=== PATIENT | female | born 1960 | race Caucasian/White ===

== ENCOUNTER 2024-09-10 13:51 | Inpatient (IN) | payer MEDICARE, OTHER ==
[~2024-09-10] VITALS: Ht 177.8 cm; Wt 89.8 kg
[2024-09-10 14:01] VITALS: TEMP 98.7
[2024-09-10] MEDS ORDERED: ASPIRIN EC81 MG PO (14:07)
[2024-09-10] MEDS ORDERED: LOSARTAN POTASS25 MG PO (14:07)
[2024-09-10] MEDS: ONDANSETRON HCL INJ 2MG/ML 2ML 2 MG/ML VIAL IV STA (14:17)
[2024-09-10] MEDS: Morphine 4mg INJECTION 4 MG/ML INJ IV ONE (14:17)
[2024-09-10 14:18] LABS: BASOPHILS % 0.3 % (0.0-1.0); EOSINOPHILS # (AUTO) 0.1 (0.0-0.4); EOSINOPHILS % 0.7 % (0.0-6.0); HEMATOCRIT 35.1 % (34.2-44.1); HEMOGLOBIN 11.3 g/dL (12.0-16.0); LYMPHOCYTES # (AUTO) 1.3 (1.0-3.2); LYMPHOCYTES % 12.9 % (18.0-39.1); MEAN CORPUSCULAR HEMOGLOBIN 29.4 pg (28-32); MEAN CORPUSCULAR HGB CONC 32.2 g/dL (31-35); MEAN CORPUSCULAR VOLUME 91.4 fL (81-99); MONOCYTES # (AUTO) 1.7 (0.2-0.8); MONOCYTES % 16.6 % (4.4-11.3); NEUTROPHILS # (AUTO) 6.9 (2.1-6.9); NEUTROPHILS % 68.7 % (38.7-80.0); PLATELET COUNT 302 x10e3/uL (140-360); RED BLOOD COUNT 3.84 x10e6/uL (3.6-5.1); RED CELL DISTRIBUTION WIDTH 14.6 % (11.7-14.4); WHITE BLOOD COUNT 10.09 x10e3/uL (4.8-10.8)
[2024-09-10 14:34] LABS: INR 1.06; PROTHROMBIN TIME 14.4 seconds (11.9-14.5)
[2024-09-10 14:35] LABS: PARTIAL THROMBOPLASTIN TIME 29.2 seconds (23.8-35.5)
[2024-09-10 14:43] LABS: ALBUMIN/GLOBULIN RATIO 0.9 (0.8-2.0); ANION GAP 12.8 mmol/L (8-16); BILIRUBIN,TOTAL 1.3 mg/dL (0.2-1.2); CALCIUM 8.6 mg/dL (8.4-10.2); CREATININE, SERUM 0.7 mg/dL (0.57-1.11); POTASSIUM 3.8 mmol/L (3.5-5.1); TOTAL PROTEIN 6.5 g/dL (6.5-8.1)
[2024-09-10] MEDS: CEFTRIAXONE 2 GM in SODIUM CHLORIDE 0.9% 100 ML IV ONE (14:45)
[2024-09-10] MEDS: Vancomycin IV 1 GM in SODIUM CHLORIDE 0.9% 250ML 250 ML IV ONE (14:45)
[2024-09-10] MEDS: HYDROCODONE/APAP 5MG-325MG TAB PO ONE (15:11)
[2024-09-10] MEDS: FENTANYL CITRATE/PF 100MCG/2 ML INJ IV ONE (15:15)
[2024-09-10 16:00] VITALS: PULSE 86; RESP 18
[2024-09-10 16:32] VITALS: BP 131/63; PULSE 81; RESP 18; TEMP 98.6; O2SAT 100
[2024-09-10] MEDS ORDERED: POLYETHYLENE GLYCOL 3350 17 GM PACK PO PRN (17:00)
[2024-09-10] MEDS ORDERED: BISACODYL 10 MG SUPP PR PRN (17:00)
[2024-09-10] MEDS ORDERED: ACETAMINOPHEN 325 MG TAB PO PRN (17:00)
[2024-09-10] MEDS ORDERED: HYDRALAZINE HCL 20 MG/ML VIAL IV PRN (17:00)
[2024-09-10 17:06] VITALS: BP 131/63; PULSE 81; RESP 18; TEMP 98.6; O2SAT 100
[2024-09-10] MEDS: SODIUM CHLORIDE 0.9% 1000ML 1,000 ML IV SCH (17:38)
[2024-09-10 20:00] VITALS: BP 130/66; PULSE 83; RESP 20; TEMP 98.1; O2SAT 98
[2024-09-10 21:00] VITALS: BP 130/66; PULSE 83; RESP 20; TEMP 98.1; O2SAT 98
[2024-09-10] MEDS: ONDANSETRON HCL INJ 2MG/ML 2ML 2 MG/ML VIAL IV PRN (21:06)
[2024-09-10] MEDS: Morphine 4mg INJECTION 4 MG/ML INJ IV PRN (21:07)
[2024-09-10] MEDS: KETOROLAC TROMETHAMINE 30 MG/ML VIAL IV STA (22:27)
[2024-09-11] VITALS (10 sets, daily range): BP systolic 100–178; BP diastolic 61–98; PULSE 77–85; RESP 16–20; TEMP 97.3–97.9; O2SAT 96–100
[2024-09-11] MEDS: Vancomycin IV 1 GM in SODIUM CHLORIDE 0.9% 250ML 250 ML IV SCH (02:26)
[2024-09-11 05:48] LABS: BASOPHILS # (AUTO) 0.1 (0.0-0.1); BASOPHILS % 0.9 % (0.0-1.0); EOSINOPHILS # (AUTO) 0.2 (0.0-0.4); EOSINOPHILS % 2.7 % (0.0-6.0); HEMATOCRIT 33.7 % (34.2-44.1); HEMOGLOBIN 10.8 g/dL (12.0-16.0); LYMPHOCYTES # (AUTO) 1.8 (1.0-3.2); LYMPHOCYTES % 22.7 % (18.0-39.1); MEAN CORPUSCULAR HEMOGLOBIN 29.7 pg (28-32); MEAN CORPUSCULAR VOLUME 92.6 fL (81-99); MONOCYTES # (AUTO) 1.3 (0.2-0.8); NEUTROPHILS # (AUTO) 4.5 (2.1-6.9); NEUTROPHILS % 57.1 % (38.7-80.0); PLATELET COUNT 304 x10e3/uL (140-360); RED BLOOD COUNT 3.64 x10e6/uL (3.6-5.1); RED CELL DISTRIBUTION WIDTH 14.6 % (11.7-14.4); WHITE BLOOD COUNT 7.87 x10e3/uL (4.8-10.8)
[2024-09-11 06:21] LABS: ALBUMIN 2.7 g/dL (3.5-5.0); ALBUMIN/GLOBULIN RATIO 0.8 (0.8-2.0); ANION GAP 14.2 mmol/L (8-16); BILIRUBIN,TOTAL 0.9 mg/dL (0.2-1.2); CALCIUM 8.2 mg/dL (8.4-10.2); CREATININE, SERUM 0.68 mg/dL (0.57-1.11); POTASSIUM 4.2 mmol/L (3.5-5.1); TOTAL PROTEIN 5.9 g/dL (6.5-8.1)
[2024-09-11 07:07] LABS: MAGNESIUM 1.9 MG/DL (1.3-2.1)
[2024-09-11 07:28] LABS: FERRITIN 197.92 ng/mL (4.63-204.00)
[2024-09-11] MEDS: DOCUSATE SODIUM 100 MG CAP PO SCH (11:04)
[2024-09-11] MEDS: SENNOSIDES 8.6 MG TAB PO SCH (11:04)
[2024-09-11] MEDS ORDERED: PROPOFOL IV EMULSION 10 MG/ML 20 ML VIAL ONE (11:20)
[2024-09-11] MEDS ORDERED: FENTANYL CITRATE/PF 100MCG/2 ML INJ ONE (11:20)
[2024-09-11] MEDS ORDERED: LIDOCAINE HCL 2% LOCAL INJ 5 ML SDV VIAL INJ ONE (11:23)
[2024-09-11] MEDS ORDERED: KETOROLAC TROMETHAMINE 30 MG/ML VIAL IV PRN (11:45)
[2024-09-11] MEDS ORDERED: MIDAZOLAM HCL 2 MG/2 ML VIAL ONE (12:23)
[2024-09-11] MEDS ORDERED: HYDROMORPHONE 2MG/ML ONE (13:20)
[2024-09-11] MEDS ORDERED: HYDROCODONE/APAP 5MG-325MG TAB PO PRN (13:30)
[2024-09-11] MEDS ORDERED: DEXAMETHASONE SOD PHOS INJ 4 MG/ML SDV ONE (13:37)
[2024-09-11] MEDS ORDERED: ONDANSETRON HCL INJ 2MG/ML 2ML 2 MG/ML VIAL ONE (13:37)
[2024-09-11] MEDS ORDERED: SEVOFLURANE INHAL SOLN 250 ML PEN BTL ONE (13:45)
[2024-09-11] MEDS: FENTANYL CITRATE/PF 100MCG/2 ML INJ ONE (15:00)
[2024-09-11] MEDS: CELECOXIB 200 MG CAP PO SCH (17:27)
[2024-09-11 20:31] LABS: BILIRUBIN,URINE NEGATIVE (NEGATIVE); CLARITY,URINE SL CLOUDY (CLEAR); COLOR,URINE YELLOW (YELLOW); GLUCOSE, URINE 1+ (NEGATIVE); KETONES,URINE NEGATIVE (NEGATIVE); LEUKOCYTE ESTERASE ,URINE TRACE (NEGATIVE); NITRITE,URINE NEGATIVE (NEGATIVE); PH,URINE 6.5 (5 - 7); PROTEIN,URINE DIPSTICK NEGATIVE (NEGATIVE); URINE UROBILINOGEN 0.2 mg/dL (0.2 - 1)
[2024-09-11 20:43] LABS: BACTERIA,URINE FEW /HPF; EPITHELIAL CELLS,URINE FEW /LPF; WBC,URINE (MAN) 0-5 /HPF (0-5); YEAST,URINE FEW
[2024-09-11] MEDS: ASPIRIN 325 MG TAB PO SCH (22:54)
[2024-09-12] VITALS (8 sets, daily range): BP systolic 127–189; BP diastolic 71–83; PULSE 80–101; RESP 17–20; TEMP 98–98.7; O2SAT 98–100
[2024-09-12] MEDS: HYDROMORPHONE 1MG/1ML INJ IV PRN ×2 (05:57→11:14)
[2024-09-12 06:32] LABS: BASOPHILS % 0.3 % (0.0-1.0); HEMATOCRIT 26.7 % (34.2-44.1); LYMPHOCYTES # (AUTO) 0.8 (1.0-3.2); LYMPHOCYTES % 5.4 % (18.0-39.1); MEAN CORPUSCULAR HEMOGLOBIN 29.7 pg (28-32); MEAN CORPUSCULAR HGB CONC 33.7 g/dL (31-35); MEAN CORPUSCULAR VOLUME 88.1 fL (81-99); MONOCYTES # (AUTO) 0.7 (0.2-0.8); MONOCYTES % 4.6 % (4.4-11.3); NEUTROPHILS # (AUTO) 13.1 (2.1-6.9); NEUTROPHILS % 88.8 % (38.7-80.0); PLATELET COUNT 343 x10e3/uL (140-360); RED BLOOD COUNT 3.03 x10e6/uL (3.6-5.1); RED CELL DISTRIBUTION WIDTH 14.3 % (11.7-14.4); WHITE BLOOD COUNT 14.71 x10e3/uL (4.8-10.8)
[2024-09-12 07:01] LABS: ALBUMIN 2.5 g/dL (3.5-5.0); ALBUMIN/GLOBULIN RATIO 0.8 (0.8-2.0); ANION GAP 12.4 mmol/L (8-16); BILIRUBIN,TOTAL 0.4 mg/dL (0.2-1.2); CREATININE, SERUM 0.66 mg/dL (0.57-1.11); POTASSIUM 4.4 mmol/L (3.5-5.1); TOTAL PROTEIN 5.5 g/dL (6.5-8.1)
[2024-09-12] MEDS: FERROUS SULFATE 325 MG TAB PO SCH (08:23)
[2024-09-12] MEDS: HYDROCODONE/APAP 7.5MG-325MG 1 EA TAB PO PRN (08:24)
[2024-09-12] MEDS: KETOROLAC TROMETHAMINE 30 MG/ML VIAL IV PRN (08:24)
[2024-09-12] MEDS: LOSARTAN POTASSIUM 25 MG TAB PO SCH (11:34)
[2024-09-12] MEDS ORDERED: ACETAMINOPHEN 1000 MG/100 ML IV PRN (13:30)
[2024-09-12] MEDS: HYDROCODONE/APAP 10MG-325MG TAB PO PRN (22:21)
[2024-09-13] VITALS (8 sets, daily range): BP systolic 119–157; BP diastolic 65–83; PULSE 76–89; RESP 18–20; TEMP 97.4–98.8; O2SAT 99–100
[2024-09-13 05:22] LABS: BASOPHILS % 0.2 % (0.0-1.0); EOSINOPHILS % 0.2 % (0.0-6.0); HEMATOCRIT 23.9 % (34.2-44.1); LYMPHOCYTES # (AUTO) 2.3 (1.0-3.2); LYMPHOCYTES % 17.9 % (18.0-39.1); MEAN CORPUSCULAR HEMOGLOBIN 29.5 pg (28-32); MEAN CORPUSCULAR HGB CONC 33.5 g/dL (31-35); MEAN CORPUSCULAR VOLUME 88.2 fL (81-99); MONOCYTES # (AUTO) 1.3 (0.2-0.8); MONOCYTES % 10.5 % (4.4-11.3); NEUTROPHILS # (AUTO) 8.9 (2.1-6.9); NEUTROPHILS % 70.6 % (38.7-80.0); PLATELET COUNT 351 x10e3/uL (140-360); RED BLOOD COUNT 2.71 x10e6/uL (3.6-5.1); RED CELL DISTRIBUTION WIDTH 14.6 % (11.7-14.4); WHITE BLOOD COUNT 12.58 x10e3/uL (4.8-10.8)
[2024-09-13 05:40] LABS: ALBUMIN 2.5 g/dL (3.5-5.0); ALBUMIN/GLOBULIN RATIO 0.9 (0.8-2.0); ANION GAP 11.9 mmol/L (8-16); BILIRUBIN,TOTAL 0.5 mg/dL (0.2-1.2); CALCIUM 9.5 mg/dL (8.4-10.2); CREATININE, SERUM 0.68 mg/dL (0.57-1.11); MAGNESIUM 1.5 MG/DL (1.3-2.1); POTASSIUM 3.9 mmol/L (3.5-5.1); TOTAL PROTEIN 5.2 g/dL (6.5-8.1)
[2024-09-13] MEDS: MAGNESIUM SULFATE 2GM/50ML 50 ML IV ONE (12:00)
[2024-09-14] VITALS (8 sets, daily range): BP systolic 128–157; BP diastolic 67–89; PULSE 78–91; RESP 17–21; TEMP 97.9–98.7; O2SAT 100
[2024-09-14 05:06] LABS: BASOPHILS % 0.3 % (0.0-1.0); EOSINOPHILS # (AUTO) 0.1 (0.0-0.4); EOSINOPHILS % 1.6 % (0.0-6.0); HEMATOCRIT 23.6 % (34.2-44.1); LYMPHOCYTES # (AUTO) 1.6 (1.0-3.2); LYMPHOCYTES % 21.8 % (18.0-39.1); MEAN CORPUSCULAR HEMOGLOBIN 29.4 pg (28-32); MEAN CORPUSCULAR HGB CONC 33.5 g/dL (31-35); MEAN CORPUSCULAR VOLUME 87.7 fL (81-99); NEUTROPHILS # (AUTO) 4.7 (2.1-6.9); NEUTROPHILS % 62.4 % (38.7-80.0); PLATELET COUNT 328 x10e3/uL (140-360); RED BLOOD COUNT 2.69 x10e6/uL (3.6-5.1); RED CELL DISTRIBUTION WIDTH 14.6 % (11.7-14.4); WHITE BLOOD COUNT 7.47 x10e3/uL (4.8-10.8)
[2024-09-14 05:36] LABS: ANION GAP 11.7 mmol/L (8-16); CALCIUM 8.1 mg/dL (8.4-10.2); CREATININE, SERUM 0.56 mg/dL (0.57-1.11); MAGNESIUM 1.6 MG/DL (1.3-2.1); POTASSIUM 3.7 mmol/L (3.5-5.1)
[2024-09-14 05:37] LABS: HEMOGLOBIN 7.9 g/dL (12.0-16.0)
[2024-09-14] MEDS: DICYCLOMINE HCL 20 MG TAB PO ONE (06:31)
[2024-09-14] MEDS: CEFTRIAXONE 2 GM in SODIUM CHLORIDE 0.9% 100 ML IV SCH (10:51)
[2024-09-14] MEDS: MUPIROCIN 2% OINT 22 GM TUBE TOP SCH (11:45)
[2024-09-14] MEDS: MAGNESIUM SULFATE 2GM/50ML 50 ML IV ONE (12:42)
[2024-09-15] VITALS: BP 140/70; PULSE 84; RESP 20; TEMP 98; O2SAT 100
[2024-09-15 04:50] VITALS: BP 170/82; PULSE 92; RESP 20; TEMP 98; O2SAT 100
[2024-09-15 06:06] LABS: BASOPHILS # (AUTO) 0.1 (0.0-0.1); BASOPHILS % 0.7 % (0.0-1.0); EOSINOPHILS # (AUTO) 0.2 (0.0-0.4); EOSINOPHILS % 2.3 % (0.0-6.0); HEMATOCRIT 24.8 % (34.2-44.1); LYMPHOCYTES # (AUTO) 1.3 (1.0-3.2); LYMPHOCYTES % 19.2 % (18.0-39.1); MEAN CORPUSCULAR HEMOGLOBIN 28.8 pg (28-32); MEAN CORPUSCULAR HGB CONC 31.5 g/dL (31-35); MEAN CORPUSCULAR VOLUME 91.5 fL (81-99); MONOCYTES # (AUTO) 0.9 (0.2-0.8); MONOCYTES % 13.6 % (4.4-11.3); NEUTROPHILS # (AUTO) 4.3 (2.1-6.9); NEUTROPHILS % 63.5 % (38.7-80.0); PLATELET COUNT 352 x10e3/uL (140-360); RED BLOOD COUNT 2.71 x10e6/uL (3.6-5.1); RED CELL DISTRIBUTION WIDTH 14.6 % (11.7-14.4); WHITE BLOOD COUNT 6.84 x10e3/uL (4.8-10.8)
[2024-09-15 06:12] LABS: HEMOGLOBIN 7.8 g/dL (12.0-16.0)
[2024-09-15 06:25] LABS: ALBUMIN 2.4 g/dL (3.5-5.0); ALBUMIN/GLOBULIN RATIO 0.9 (0.8-2.0); ANION GAP 10.8 mmol/L (8-16); BILIRUBIN,TOTAL 0.4 mg/dL (0.2-1.2); CALCIUM 8.1 mg/dL (8.4-10.2); CREATININE, SERUM 0.58 mg/dL (0.57-1.11); MAGNESIUM 1.7 MG/DL (1.3-2.1); POTASSIUM 3.8 mmol/L (3.5-5.1)
[2024-09-15 08:00] VITALS: BP 170/82; PULSE 92; RESP 20; TEMP 98; O2SAT 100
[2024-09-15 08:34] VITALS: BP 136/81; PULSE 82; RESP 20; TEMP 98.1; O2SAT 99
[2024-09-15 11:57] VITALS: BP 173/83; PULSE 81; RESP 20; TEMP 97.9; O2SAT 97
[2024-09-15] MEDS ORDERED: ASPIRIN325 MG PO (14:19)
[2024-09-15] MEDS ORDERED: CELEBREX200 MG PO (14:19)
[2024-09-15] MEDS ORDERED: IRON325 M1 PO (14:19)
== END 2024-09-15 15:40 | disposition home health service (06) | DRG 486 ==
LOC: ER 13:54 → ERHOLD 15:20 → MED/SURG2 16:50
PROVIDERS: ADMIT Internal Medicine; ATTEND Internal Medicine
PROC: 0SPC09Z Removal of Liner from Right Knee Joint, Open Approach (ICD-10-PCS; 2024-09-11)
PROC: 0Y9F0ZZ Drainage of Right Knee Region, Open Approach (ICD-10-PCS; 2024-09-11)
PROC: 0SUV09Z Supplement Right Knee Joint, Tibial Surface with Liner, Open Approach (ICD-10-PCS; principal; 2024-09-11 12:50)
PROC: 02HV33Z Insertion of Infusion Device into Superior Vena Cava, Percutaneous Approach (ICD-10-PCS; 2024-09-15)
DX: T84.53XA Infection and inflammatory reaction due to internal right knee prosthesis, initial encounter (principal); M00.9 Pyogenic arthritis, unspecified; M85.80 Other specified disorders of bone density and structure, unspecified site; R76.8 Other specified abnormal immunological findings in serum; D50.9 Iron deficiency anemia, unspecified; Y83.1 Surgical operation with implant of artificial internal device as the cause of abnormal reaction of the patient, or of later complication, without mention of misadventure at the time of the procedure; E66.9 Obesity, unspecified; Z68.28 Body mass index [BMI] 28.0-28.9, adult; Z79.82 Long term (current) use of aspirin; Z87.891 Personal history of nicotine dependence
CPT/HCPCS: 36415; 36569; 71045; 80048; 80053; 80202; 81001; 82607; 82728; 82746; 83540; 83735; 84466; 85025; 85610; 85730; 86140; 87040; 87071; 87075; 87102; 87205; 87206; 93971; 94799; 99284; C1713; C1776; J0692; J0696; J1100; J1171; J1885; J2003; J2250; J2270; J2405; J3475; J7030; J7050